=== PATIENT | female | born 1960 | race Hispanic/Latino ===

== ENCOUNTER 2019-03-13 12:24 | Emergency (ER) | payer BC ==
[2019-03-13 12:41] VITALS: BP 137/69; PULSE 71; RESP 18; TEMP 97.8; O2SAT 97
[2019-03-13] MEDS ORDERED: Fluorescein 1 mg Ophthalmic Strip OU ONE (12:48)
[2019-03-13] MEDS ORDERED: Tetracaine 0.5% Ophth 2 ML BOTTLE OU ONE (12:48)
[2019-03-13] MEDS ORDERED: Fluorescein 1 mg Ophthalmic Strip ONE (12:58)
[2019-03-13] MEDS ORDERED: Tetracaine 0.5% Ophth 2 ML BOTTLE ONE (12:58)
--- NOTE | 2019-03-13 13:41 | ED PDOC ---
HPI: Eye Injury/Pain Time Seen by Provider: 03/13/19 12:45 Chief Complaint (Nursing): Eye Problem Chief Complaint (Provider): Eye Problem History Per: Patient History/Exam Limitations: no limitations Onset/Duration Of Symptoms: Hrs Current Symptoms Are (Timing): Still Present Additional Complaint(s): Patient is a 59 y/o female with a PMHx of diabetes who states earlier today she accidentally broke a wine glass and claims, since, she has felt like pieces of glass were in her left eye. Patient complains of pain and redness in her left eye as a result of a foreign body sensation. Patient denies contact use. PCP: None Provided Past Medical History Reviewed: Historical Data, Nursing Documentation, Vital Signs Vital Signs: Last Vital Signs Temp 97.8 F 03/13/19 12:39 Pulse 71 03/13/19 12:39 Resp 18 03/13/19 12:39 BP 137/69 03/13/19 12:39 Pulse Ox 97 03/13/19 12:39 - Medical History PMH: No Chronic Diseases - Surgical History Surgical History: No Surg Hx - Family History Family History: States: No Known Family Hx - Home Medications Home Medications: Ambulatory Orders Medication Instructions Recorded Erythromycin 0.5% [Erythromycin] 1 applic LEFTEYE Q6 #1 tube 03/13/19 - Allergies Allergies/Adverse Reactions: Allergies Allergy/AdvReac Type Severity Reaction Status Date / Time No Known Allergies Allergy Verified 03/13/19 12:39 Review of Systems Eyes: Positive for: Pain (left due to foreign body sensation), Redness Physical Exam - Reviewed Nursing Documentation Reviewed: Yes Vital Signs Reviewed: Yes - Physical Exam Appears: Positive for: No Acute Distress Head Exam: Positive for: ATRAUMATIC Eye Exam: Positive for: EOMI, PERRL, Conjunctival injection (left eye, moderate). Negative for: Other (hyphema, fluorescein uptake, or foreign body noted including with eyelid inversion) Cardiovascular/Chest: Positive for: Regular Rate, Rhythm. Negative for: Murmur Respiratory: Positive for: Normal Breath Sounds. Negative for: Respiratory Distress Neurological/Psych: Positive for: Alert, Oriented (x3) - ECG O2 Sat by Pulse Oximetry: 97 (RA) Pulse Ox Interpretation: Normal Medical Decision Making Medical Decision Making: Time: 1248 Impression: Left Eye Pain/Irritation Plan: Fluorescein 1 mg OU Tetracaine 1 drop OU Time: 1345 Eye irrigation performed with good relief of foreign body sensation. Scribe Attestation: Documented by Eugenio Monzon, acting as a scribe David Marie PA-C. Provider Scribe Attestation: All medical record entries made by the Scribe were at my direction and personally dictated by me. I have reviewed the chart and agree that the record accurately reflects my personal performance of the history, physical exam, medical decision making, and the department course for this patient. I have also personally directed, reviewed, and agree with the discharge instructions and disposition. Disposition - Clinical Impression Clinical Impression: Foreign body in eye - Disposition Referrals: [facility] [Outside] Joel Castaneda MD [Staff Provider] - Disposition Time: 13:50 Condition: STABLE Additional Instructions: FOLLOW UP WITH DR. CASTANEDA FOR FURTHER EVALUATION RETURN TO ED IMMEDIATELY IF SYMPTOMS WORSEN ASIM RM, thank you for letting us take care of you today. Your provider was Henrry Garcia MD and you were treated for LT EYE INJURY. The emergency medical care you received today was directed at your acute symptoms. If you were prescribed any medication, please fill it and take as directed. It may take several days for your symptoms to resolve. Return to the Emergency Department if your symptoms worsen, do not improve, or if you have any other problems. Please contact your doctor or call one of the physicians/clinics you have been referred to that are listed on the Patient Visit Information form that is included in your discharge packet. Bring any paperwork you were given at discharge with you along with any medications you are taking to your follow up visit. Our treatment cannot replace ongoing medical care by a primary care provider outside of the emergency department. Thank you for allowing the [facility] team to be part of your care today. If you had an X-Ray or CT scan: A Radiologist will review the ED reading if any change in treatment is needed we will contact you. If you had a blood, urine, or wound culture: It will take several days for the results, if any change in treatment is needed we will contact you. If you had an STI test: It will take 48 hours for the results. Please call after 1 week if you have not heard back. Prescriptions: Erythromycin 0.5% [Erythromycin] 1 applic LEFTEYE Q6 #1 tube Instructions: Foreign Body in Eye (DC) Forms: [facility] (Sinhala) Print Language: [place]
== END 2019-03-13 13:46 | disposition home or self-care (01) ==
LOC: H.ER 12:24
DX: T15.82XA Foreign body in other and multiple parts of external eye, left eye, initial encounter (principal); H44.702 Unspecified retained (old) intraocular foreign body, nonmagnetic, left eye; Z18.9 Retained foreign body fragments, unspecified material; E11.9 Type 2 diabetes mellitus without complications